=== PATIENT | female | born 1995 | race Caucasian/White ===

== ENCOUNTER 2016-12-04 10:51 | Emergency (ER) | payer MEDICAID ==
[~2016-12-04] VITALS: Ht 170.2 cm; Wt 54.5 kg
[2016-12-04 10:52] VITALS: BP 129/81
[2016-12-04] MEDS ORDERED: POVIDONE-IODINE 10% 15 ML SOLUTION UD ONE (11:40)
[2016-12-04] MEDS ORDERED: ACETAMINOPHEN 325 MG TABLET PO ONE (11:45)
[2016-12-04] MEDS ORDERED: LIDOCAINE HCL BUFFERED 1% 20 ML VIAL INJ ONE (11:45)
[2016-12-04] MEDS ORDERED: LEVOFLOXACIN 500 MG TABLET PO ONE (11:45)
== END 2016-12-04 13:08 | disposition home or self-care (01) ==
LOC: EMS 10:54
DX: N75.0 Cyst of Bartholin's gland (principal); Z88.0 Allergy status to penicillin
CPT/HCPCS: 56420; 99284; J3490

== ENCOUNTER 2017-01-31 01:03 | Emergency (ER) | payer SELFPAY ==
[~2017-01-31] VITALS: Ht 170.2 cm; Wt 54.5 kg
[2017-01-31 01:31] VITALS: BP 111/78
== END 2017-01-31 02:11 | disposition home or self-care (01) ==
LOC: EMS 01:04
DX: Z20.7 Contact with and (suspected) exposure to pediculosis, acariasis and other infestations (principal); Z88.0 Allergy status to penicillin
CPT/HCPCS: 99282